=== PATIENT | female | born 2000 | race Caucasian/White ===

== ENCOUNTER 2024-10-04 22:00 | Emergency (ER) | payer MEDICAID, OTHER, SELFPAY ==
[~2024-10-04] VITALS: Ht 172.7 cm; Wt 149.3 kg
[2024-10-04 22:03] VITALS: BP 134/67; TEMP 97.6; O2SAT 98
[2024-10-04] MEDS: KETOROLAC 60MG 2ML VIAL IM ONE (23:58)
== END 2024-10-05 00:13 | disposition home or self-care (01) ==
LOC: M ED 22:00
DX: M25.512 Pain in left shoulder (principal); W00.0XXA Fall on same level due to ice and snow, initial encounter; J45.909 Unspecified asthma, uncomplicated; F17.200 Nicotine dependence, unspecified, uncomplicated; Z88.5 Allergy status to narcotic agent; Z91.018 Allergy to other foods; Y99.9 Unspecified external cause status
CPT/HCPCS: 73030; 96372; 99283; J1885

== ENCOUNTER → 2024-11-25 | Outpatient (CLI) | payer OTHER | LOC: M SOG 08:54 | PROVIDERS: ATTEND Neuromusculoskeletal Medicine, Sports Medicine | DX: M25.512 Pain in left shoulder (principal) ==

== ENCOUNTER → 2024-12-07 | Outpatient (CLI) | payer OTHER | LOC: M RAD 11:10 | PROVIDERS: ATTEND Neuromusculoskeletal Medicine, Sports Medicine | DX: S43.101A Unspecified dislocation of right acromioclavicular joint, initial encounter (principal); M25.512 Pain in left shoulder; S46.011A Strain of muscle(s) and tendon(s) of the rotator cuff of right shoulder, initial encounter; X58.XXXA Exposure to other specified factors, initial encounter; Y92.9 Unspecified place or not applicable ==

== ENCOUNTER → 2024-12-23 | Outpatient (REF) | LOC: M EMP 07:58 | PROVIDERS: ATTEND Family Medicine | DX: Z01.89 Encounter for other specified special examinations (principal) ==